=== PATIENT | male | born 1975 | race Caucasian/White ===

== ENCOUNTER 2021-01-12 22:13 | Inpatient (IN) | payer MEDICARE, OTHER ==
[2021-01-12] MEDS ORDERED: ONDANSETRON 4 MG/2 ML VIAL IVP PRN (22:38)
[2021-01-12] MEDS ORDERED: NALOXONE 0.4 MG/ML 1 ML VIAL IV PRN (22:38)
[2021-01-12] MEDS ORDERED: ACETAMINOPHEN TAB 325 MG TAB PO PRN (22:38)
--- NOTE | 2021-01-12 22:39 | ED ---
General Adult HPI - General Chief complaint: Recheck/Abnormal Lab/Rx Stated complaint: Hyperglycemia Time Seen by Provider: 01/12/21 22:15 Source: patient, EMS, RN notes reviewed Mode of arrival: EMS Limitations: no limitations - History of Present Illness Initial comments: This a 45-year-old male presents emergency Department as a transfer from [facility] with chief complaint of hyperglycemia, hyperkalemia, renal failure patient is end-stage renal disease on dialysis. Patient reportedly had a potassium of 7.5, hyperglycemia or 600 earlier today. Patient was given insulin patient did receive Kayexalate for his hyperkalemia. He states he makes little to no urine output. He did miss dialysis yesterday which she has not had dialysis in 4 days. Patient's states he is legally blind from his diabetes. He has a fistula on his left which is clotted, failed, active fistula on the right arm. Patient goes to dialysis Monday and Monday. Patient states his been dealing with some sinus issues over the last few weeks - Related Data Allergies Allergy/AdvReac Type Severity Reaction Status Date / Time No Known Allergies Allergy Verified 01/12/21 22:26 Review of Systems ROS Statement: Those systems with pertinent positive or pertinent negative responses have been documented in the HPI. ROS Other: All systems not noted in ROS Statement are negative. Past Medical History Past Medical History: Diabetes Mellitus, Renal Disease Additional Past Medical History / Comment(s): kidney failure, dialysis mon, mon, monday, legally blind. History of Any Multi-Drug Resistant Organisms: C-DIFF Date of last positivie culture/infection: 2017 Additional Past Surgical History / Comment(s): left below the knee amputation, Past Psychological History: No Psychological Hx Reported Smoking Status: Never smoker Past Alcohol Use History: None Reported Past Drug Use History: None Reported General Exam Limitations: no limitations General appearance: alert, in no apparent distress Head exam: Present: atraumatic, normocephalic, normal inspection Eye exam: Absent: normal appearance, PERRL, EOMI, scleral icterus, conjunctival injection, periorbital swelling ENT exam: Present: normal exam, mucous membranes moist Respiratory exam: Present: normal lung sounds bilaterally. Absent: respiratory distress, wheezes, rales, rhonchi, stridor Cardiovascular Exam: Present: regular rate, normal rhythm, normal heart sounds. Absent: systolic murmur, diastolic murmur, rubs, gallop, clicks GI/Abdominal exam: Present: soft, normal bowel sounds. Absent: distended, tenderness, guarding, rebound, rigid Extremities exam: Present: other (Fistula left arm no thrill noted, fistula on the right arm thrill noted) Neurological exam: Present: alert, oriented X3 Skin exam: Present: warm, dry, intact, normal color. Absent: rash Course Vital Signs 01/12/21 22:27 Temperature 97.6 F Pulse Rate 89 Respiratory 20 Rate Blood Pressure 193/102 O2 Sat by Pulse 99 Oximetry Medical Decision Making - Medical Decision Making Patient's case discussed with [facility] physician Dr. Rivas. Patient will be admitted for hyperkalemia, dialysis, hyperglycemia patient will have repeat labs now Disposition Clinical Impression: Hyperkalemia, Hyperglycemia, End stage renal disease on dialysis, Hypertension Disposition: ADMITTED IP TO THIS [facility] Condition: Fair Referrals: Nonstaff,Physician [Primary Care Provider] - 1-2 days
[2021-01-12 22:44] LABS: Basophils # (A) 0.1 k/uL (0-0.2); Basophils % (A) 1 %; Eosinophils # (A) 0.9 k/uL (0-0.7); Eosinophils % (A) 11 %; HCT 31.5 % (39.0-53.0); HGB 11.1 gm/dL (13.0-17.5); Lymphocytes # (A) 0.9 k/uL (1.0-4.8); Lymphocytes % (A) 12 %; MCH 31.4 pg (25.0-35.0); MCHC 35.4 g/dL (31.0-37.0); MCV 88.6 fL (80.0-100.0); Mean Platelet Volume 8.7; Monocytes # (A) 0.3 k/uL (0-1.0); Monocytes % (A) 4 %; Neutrophils # (A) 5.8 k/uL (1.3-7.7); Neutrophils % (A) 72 %; Platelet Count 212 k/uL (150-450); RBC 3.55 m/uL (4.30-5.90); RDW 14.7 % (11.5-15.5); WBC 8.1 k/uL (3.8-10.6)
[2021-01-12] MEDS ORDERED: hydrALAZINE HCL 20 MG/ML 1 ML VIAL IVP STA (22:50)
[2021-01-12 23:00] LABS: Albumin 4.3 g/dL (3.5-5.0); Calcium 9.2 mg/dL (8.4-10.2); Total Bilirubin 1.4 mg/dL (0.2-1.3); Total Protein 6.7 g/dL (6.3-8.2)
[2021-01-12 23:01] LABS: Potassium 6.3 mmol/L (3.5-5.1)
[2021-01-13] MEDS ORDERED: FLUTICASONE 50MCG/SPRAY NASAL 16GM EA NOSTRIL PRN (02:47)
[2021-01-13] MEDS ORDERED: LORATADINE 10 MG TAB PO PRN (02:47)
[2021-01-13] MEDS ORDERED: hydrALAZINE HCL 25 MG TAB PO PRN (02:53)
[2021-01-13] MEDS ORDERED: cloNIDine HCL 0.2 MG TAB PO PRN (02:53)
[2021-01-13] MEDS ORDERED: INSULIN REGULAR 100 UNIT/ML VIAL (IV) IV ONE (02:54)
[2021-01-13] MEDS ORDERED: DEXTROSE 50% SYRINGE 50 ML IVP STA (02:54)
--- NOTE | 2021-01-13 03:07 | P.HPIM ---
History of Present Illness H&P Date: 01/12/21 Chief Complaint: Hyperkalemia hyperglycemia 45-year-old male with complex past medical history end-stage renal disease on hemodialysis Monday noncompliance, diabetes mellitus, hypertension Patient comes in as a transfer from [facility] where he was found to be hyperglycemic and severe hyperkalemia he was treated over there given some potassium lowering cocktails and was sent to our facility for nephrology evaluation and dialysis. Patient currently feeling fine he is sitting in bed comfortably he reports that was bothering him right now is postnasal drip that he's been dealing with his sinuses for a while he's been on a prescription of antibiotic with Augmentin and uses Flonase when he remembers. He denies any coughing denies any him off the cysts denies any nosebleeds denies any fevers or chills He has end-stage renal disease as a competition of diabetes he tries to be more compliant with hemodialysis he has missed dialysis on Monday yesterday due to work commitments but otherwise denies any chest pain or trouble breathing denies any nausea or vomiting denies any abdominal pain. He went to the other facility for evaluation because he was feeling generalized weakness today and he was found to have hyperglycemia with blood sugar above 600 for which she received treatment at the other facility, he was also found to have severe hyperkalemia with potassium of 7.5 for which she received potassium lowering cocktails. He was transferred to a facility for hemodialysis At the other facility patient did receive calcium gluconate IV combination of insulin and D50 and received Kayexalate. Blood work showed chronic anemia, end-stage renal disease with elevated phosphorus and potassium. Has potassium has been improving currently at 6.3 down from 7.5. Patient also reports history of blood clots he's supposed to be on Eliquis however he admits to be noncompliant with the medication and takes only one remembers He also admits to struggling with meals and insulin coverage. Patient doesn't specify what exactly is the problem but he seems to be frustrated with his comorbidities and tends to eat things he is not supposed to eat and he fails to watch his blood sugar closely. Patient has multiple complications due to diabetes he is legally blind, end-stage renal disease, amputation left lower extremity below-knee amputation due to comes conditions of diabetes. He denies any tobacco smoking illegal drugs or alcohol use Review of Systems Pertinent positives as noted in HPI. All other systems were reviewed and are negative Past Medical History Past Medical History: Diabetes Mellitus, Renal Disease Additional Past Medical History / Comment(s): kidney failure, dialysis mon, mon, monday, legally blind. History of Any Multi-Drug Resistant Organisms: C-DIFF Date of last positivie culture/infection: 2017 Additional Past Surgical History / Comment(s): left below the knee amputation, Past Psychological History: No Psychological Hx Reported Smoking Status: Never smoker Past Alcohol Use History: None Reported Past Drug Use History: None Reported - Past Family History family Family Medical History: No Reported History Medications and Allergies Home Medications Medication Instructions Recorded Confirmed Type Amoxicillin/Potassium Clav 1 tab PO BID 01/12/21 01/12/21 History [Augmentin 875-125 Tablet] Apixaban [Eliquis] 2.5 mg PO DIRECTED 01/12/21 01/12/21 History Doxazosin [Cardura] 2 mg PO DAILY 01/12/21 01/12/21 History Fluticasone Nasal [place] [Flonase 1 spray EA NOSTRIL DAILY PRN 01/12/21 01/12/21 History Nasal [place]] Insulin Aspart [NovoLOG Flexpen] 5 units SQ AC-TID 01/12/21 01/12/21 History Insulin Aspart [NovoLOG Flexpen] See Protocol SQ AC-TID 01/12/21 01/12/21 History Insulin Glargine,Hum.rec.anlog 20 unit SQ HS 01/12/21 01/12/21 History [Lantus Solostar Pen] Lokelma 10gm Oral Powder Packet 1 packet PO FALCON 01/12/21 01/12/21 History Loratadine [Claritin] 10 mg PO DAILY PRN 01/12/21 01/12/21 History amLODIPine [Norvasc] 5 mg PO DAILY 01/12/21 01/12/21 History hydrALAZINE HCL 25 mg PO TID PRN 01/12/21 01/12/21 History Allergies Allergy/AdvReac Type Severity Reaction Status Date / Time No Known Allergies Allergy Verified 01/12/21 22:26 Physical Exam Vitals: Vital Signs Temp Pulse Resp BP Pulse Ox 01/13/21 00:00 85 20 175/97 95 01/12/21 23:14 86 20 183/107 97 01/12/21 22:27 97.6 F 89 20 193/102 99 Intake and Output 01/12/21 01/12/21 01/13/21 14:59 22:59 06:59 Other: Weight 79 kg Constitutional: No acute distress, conversant, pleasant Eyes: Anicteric sclerae, moist conjunctiva, Left eye pupil reactive sluggishly to light, right eye with cloudy cornea ENMT: NC/AT Oropharynx clear, no erythema, or exudates Neck: Supple, FROM, no masses, or JVD No carotid bruits No thyromegaly Lungs: Clear to auscultation Clear to percussion Normal respiratory effort, no accessory muscle use Cardiovascular: Heart regular in rate and rhythm, No murmurs, gallops, or rubs No peripheral edema Abdominal: Soft Nontender, no guarding, rebound or rigidity Abdomen moving with respiration Normoactive bowel sounds No hepatomegaly, No splenomegaly No palpable mass No abdominal wall hernia noted Skin: Normal temperature, tone, texture, turgor No induration No subcutaneous nodules No rash, lesions No ulcers Extremities: Right arm AV graft with positive thrill No digital cyanosis No clubbing Pedal pulses palpable right foot, patient has left BKA Radial pulses intact and symmetrical No calf tenderness Psychiatric: Alert and oriented to person, place and time Appropriate affect fair judgement Neuro Muscles Strength 5/5 in bilateral upper and lower extremities Sensation to light touch grossly present throughout Cranial nerves II-XII grossly intact No focal sensory deficits Lymphatics: no palpable cervical or supraclavicular , or inguinal lymph nodes Results CBC & Chem 7: 01/12/21 22:34 01/12/21 22:34 Labs: Abnormal Lab Results - Last 24 Hours (Table) 01/12/21 01/12/21 Range/Units 22:34 22:34 RBC 3.55 L (4.30-5.90) m/uL Hgb 11.1 L (13.0-17.5) gm/dL Hct 31.5 L (39.0-53.0) % Lymphocytes # 0.9 L (1.0-4.8) k/uL Eosinophils # 0.9 H (0-0.7) k/uL Sodium 135 L (137-145) mmol/L Potassium 6.3 H* (3.5-5.1) mmol/L Carbon Dioxide 17 L (22-30) mmol/L BUN 102 H* (9-20) mg/dL Creatinine 13.65 H* (0.66-1.25) mg/dL Glucose 162 H (74-99) mg/dL Phosphorus 11.0 H* (2.5-4.5) mg/dL Total Bilirubin 1.4 H (0.2-1.3) mg/dL Assessment and Plan Assessment: Hyperkalemia secondary to noncompliance with hemodialysis End-stage renal disease on hemodialysis Monday with noncompliance, Hyperphosphatemia Hyperglycemia/diabetes mellitus with noncompliance Chronic anemia of chronic disease Hypertensive urgency History of blood clots on Eliquis noncompliant Legally blind secondary to come to patient's of diabetes, left BKA secondary to diabetic foot ulcer Plan Repeat labs shows improvement in potassium to 6.3 down from 7.5, will repeat potassium lowering cocktail with IV insulin and D50 Patient received calcium gluconate, insulin and D50, and cardiac related the [facility] facility Nephrology consult to consider hemodialysis Cardiac telemetry Hyperglycemia has improved with blood sugar dropping from 600 at the other facility currently at 160 will continue with home Levemir dose, and insulin sliding scale Resume home blood pressure medications, start patient on clonidine when necessary for systolic blood pressure more than 180 Postnasal drip, continue with Claritin, Flonase for symptomatic relief, continue with Augmentin from outpatient primary care doctor prescribed History of multiple blood clots on Eliquis patient admits to being noncompliant resume Eliquis 2.5 mg twice a day End-stage renal disease on hemodialysis Monday, await further nephrology recommendations Anemia of chronic disease patient denies any active bleeding Repeat labs in the morning close monitoring of potassium DVT prophylaxis patient on low-dose Eliquis Anticipated length of stay more than 2 midnights Anticipated discharge home Patient is full code
[2021-01-13 03:33] LABS: Glucose,Whole Blood 181 mg/dL (75-99)
[2021-01-13 05:06] LABS: Calcium 8.6 mg/dL (8.4-10.2); Potassium 5.8 mmol/L (3.5-5.1)
[2021-01-13 05:50] VITALS: RESP 18
[2021-01-13] MEDS: INSULIN ASPART (NovoLOG) 100 UNIT/ML VIAL SQ SCH ×2 (08:30→18:45)
[2021-01-13] MEDS ORDERED: APIXABAN 2.5 MG TABLET PO SCH (09:00)
[2021-01-13] MEDS ORDERED: amLODIPine 5 MG TAB PO SCH (09:00)
[2021-01-13] MEDS ORDERED: DOXAZOSIN 2 MG TAB PO SCH (09:00)
[2021-01-13] MEDS ORDERED: AMOXIC-POT CLAV 875-125MG 1 EACH TAB PO SCH ×2 (09:00→21:00)
[2021-01-13] MEDS ORDERED: INSULIN DETEMIR (LEVEMIR) 100 UNIT/ML SYR SQ SCH (09:00)
--- NOTE | 2021-01-13 13:15 | P.DS ---
Providers Date of admission: 01/12/21 22:46 Expected date of discharge: 01/13/21 Attending physician: Chapis Rivas MD Consults: 01/12/21 22:26 Consult Physician Urgent Consulting Provider: Mag Rolon Consult Reason/Comments: End-stage renal disease, dialysis, hyperkalemia Do you want consulting provider notified?: Yes Primary care physician: Physician Nonstaff Hospital Course: This is a 45-year-old male with complex past medical history significant for end-stage renal disease on hemodialysis and type 2 diabetes that presented from an outside hospital secondary to hyperglycemia and hyperkalemia. Apparently patient missed his dialysis and has not been compliant with his insulin. He was transferred to [facility] and was seen and evaluated by nephrology. He underwent dialysis today in the hospital. He was counseled extensively regarding compliance with his medications. He will be discharged home in a stable condition. For further details about this hospitalization please refer to the electronic chart. Patient Condition at Discharge: Fair Plan - Discharge Summary New Discharge Prescriptions: Continue Doxazosin [Cardura] 2 mg PO DAILY Apixaban [Eliquis] 2.5 mg PO DIRECTED Insulin Glargine,Hum.rec.anlog [Lantus Solostar Pen] 20 unit SQ HS Insulin Aspart [NovoLOG Flexpen] 5 units SQ AC-TID Acetaminophen Tab [Tylenol] 500 - 1,000 mg PO Q4H PRN PRN Reason: Pain Or Fever > 100.5 Loratadine [Claritin] 10 mg PO DAILY PRN PRN Reason: Allergy Symptoms Fluticasone Nasal [place] [Flonase Nasal [place]] 1 spray EA NOSTRIL DAILY PRN PRN Reason: Allergy Symptoms Amoxicillin/Potassium Clav [Augmentin 875-125 Tablet] 1 tab PO BID hydrALAZINE HCL 25 mg PO QID PRN PRN Reason: BLOOD PRESSURE >180 amLODIPine [Norvasc] 5 mg PO DAILY Insulin Aspart [NovoLOG Flexpen] See Protocol SQ AC-TID Lokelma 10gm Oral Powder Packet 1 packet PO FALCON carvediloL [Coreg] 6.25 mg PO BID Discharge Medication List Amoxicillin/Potassium Clav [Augmentin 875-125 Tablet] 1 tab PO BID 01/12/21 [History] Apixaban [Eliquis] 2.5 mg PO DIRECTED 01/12/21 [History] Doxazosin [Cardura] 2 mg PO DAILY 01/12/21 [History] Fluticasone Nasal [place] [Flonase Nasal [place]] 1 spray EA NOSTRIL DAILY PRN 01/12/21 [History] Insulin Aspart [NovoLOG Flexpen] 5 units SQ AC-TID 01/12/21 [History] Insulin Aspart [NovoLOG Flexpen] See Protocol SQ AC-TID 01/12/21 [History] Insulin Glargine,Hum.rec.anlog [Lantus Solostar Pen] 20 unit SQ HS 01/12/21 [History] Lokelma 10gm Oral Powder Packet 1 packet PO FALCON 01/12/21 [History] Loratadine [Claritin] 10 mg PO DAILY PRN 01/12/21 [History] amLODIPine [Norvasc] 5 mg PO DAILY 01/12/21 [History] hydrALAZINE HCL 25 mg PO QID PRN 01/12/21 [History] Acetaminophen Tab [Tylenol] 500 - 1,000 mg PO Q4H PRN 01/13/21 [History] carvediloL [Coreg] 6.25 mg PO BID 01/13/21 [History] Follow up Appointment(s)/Referral(s): Nonstaff,Physician [Primary Care Provider] - 1-2 days Discharge Disposition: HOME SELF-CARE
[2021-01-13 19:05] VITALS: BP 169/96; PULSE 78; TEMP 97.6
--- NOTE | 2021-01-13 20:12 | CONS ---
CONSULTATION REASON FOR CONSULT: End-stage renal disease. HISTORY OF PRESENT ILLNESS: Patient is a 45-year-old male with end-stage renal disease, on hemodialysis on a Monday, Monday, Monday schedule at the [facility] under care of Dr. Mckeon. The patient was transferred to [facility] from [place] as the hospital that he was initially admitted at did not have dialysis facility. 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 He denies any fevers or chills. Patient states that he did not go for his treatment on Monday, as he was feeling sick and he has had symptoms suggestive of sinusitis for 3-4 weeks now. Some cough occasionally. No history of abdominal pain, diarrhea, nausea, vomiting. PAST MEDICAL HISTORY: End-stage renal disease, diabetes, hypertension, history of noncompliance. Patient is legally blind, history of C difficile colitis, history of left below-knee amputation. PAST SURGICAL HISTORY: AV fistula and left BKA. SOCIAL HISTORY: Negative for smoking, drug abuse or alcohol abuse. MEDICATIONS: Medications prior to admission included insulin, Norvasc, hydralazine, Claritin, Lokelma. ALLERGIES: None. REVIEW OF SYSTEMS: As per HPI. Other systems negative. EXAMINATION: Awake, comfortable. He is not in any acute distress. Blood pressure is elevated at 174/98, heart rate 88 per minute. Patient is afebrile. Examination of the heart S1, S2. Examination of the lungs, bilateral breath sounds are heard. Abdomen is soft, nontender. Examination of lower extremities shows no edema. Patient has left BKA. [employer] exam grossly intact. LAB: Show sodium 132, potassium 5.8, BUN 101, serum creatinine of 13.9. CO2 was 14. Phosphorus was 11. ASSESSMENT: 1. End-stage renal disease, on hemodialysis on a Monday, Monday, Monday schedule. 2. Hyperkalemia associated with noncompliance with dialysis. 3. Metabolic acidosis associated with underlying renal failure and patient not having had dialysis for about 5 days now. 4. Severe hyperphosphatemia, most likely associated with noncompliance with binders. 5. Hyperglycemia, now improved. It is unclear if acetone was positive. PLAN: Hemodialysis today, UF of about 2-3 L as tolerated. The patient is advised regarding need for compliance with the dialysis and medications including phosphate binders and Lokelma for chronic hyperkalemia. Thank you for this consultation. We will continue to follow the patient with you during his hospitalization. CASSANDRA / SURINDER: [id number] /
== END 2021-01-13 19:04 | disposition home or self-care (01) | DRG 637 ==
LOC: EC 22:13 → 3SCARD 22:46 → 4SSUR 01-13 10:36
PROVIDERS: ADMIT Internal Medicine; ATTEND Internal Medicine
PROC: 5A1D70Z Performance of Urinary Filtration, Intermittent, Less than 6 Hours Per Day (ICD-10-PCS; principal; 2021-01-12)
DX: E11.65 Type 2 diabetes mellitus with hyperglycemia (principal); N18.6 End stage renal disease; I12.0 Hypertensive chronic kidney disease with stage 5 chronic kidney disease or end stage renal disease; E87.2 Acidosis; E87.5 Hyperkalemia; H54.8 Legal blindness, as defined in USA; I16.0 Hypertensive urgency; D63.1 Anemia in chronic kidney disease; E11.22 Type 2 diabetes mellitus with diabetic chronic kidney disease; Z20.822 Contact with and (suspected) exposure to COVID-19; Z89.512 Acquired absence of left leg below knee; E83.39 Other disorders of phosphorus metabolism; Z99.2 Dependence on renal dialysis; Z91.14 Patient's other noncompliance with medication regimen; Z91.19 Patient's noncompliance with other medical treatment and regimen; Z79.4 Long term (current) use of insulin; Z79.899 Other long term (current) drug therapy; Z71.89 Other specified counseling; Z79.01 Long term (current) use of anticoagulants; Z86.19 Personal history of other infectious and parasitic diseases; Z86.718 Personal history of other venous thrombosis and embolism; Z91.15 Patient's noncompliance with renal dialysis; Z86.79 Personal history of other diseases of the circulatory system
CPT/HCPCS: 36415; 80048; 80053; 84100; 85025; 87635; 90935; 99285